=== PATIENT | female | born 1990 | race African-American/Black ===

== ENCOUNTER 2024-11-06 09:18 | Outpatient (AMB) | payer OTHER, SELFPAY ==
--- NOTE | 2024-11-06 09:46 | A.OFFVIS_ITS ---
VS Expanded 11/06/24 09:50 11/06/24 09:54 Height 5 ft 8 in 5 ft 8 in Weight 301 lb 2.423 oz 301 lb BMI 45.8 45.8 Intake Visit Reasons: T2DM Nutrition Presentation Details: Pt presents for MNT for T2DM Pt reports she had sleeve gastric surgery in 11/2023 Pt reports having symptoms of hypoglycemia 2 hours after meals Pt also reports vomiting after meals 2-3 x/wk - has endoscopy pending at the end of this month Taking vitamin supplements: reports not taking Typical meal reports having different snacks throughout the day and then in the evening has a meal consisting of starch/prot and veg food frequency fish: 0-1/m fruits:0-1/d (sometimes juices) starches > 20/d vegetables: 1-2 serving/d dairy: limits due to having intolerance to dairy pastries and similar >3/d physical activity---- reports having fluids 30-45 min before or after meals BS Monitoring Most Recent Diabetes Results: No Data to Display [facility]Je[facility] Equation Height: 5 ft 8 in Weight: 301 lb Resting Metabolic Rate: 2115.17 Calculated Activity Level: Sedentary Calories Needed to Maintain Weight: 2538.20 Diagnosis Nutrition problem #1: food nutri know defi As related to (etiology) #1: diagnosis As evidenced by (sign/symptom) #1: food recall [facility] Surgical History (Updated 11/06/24 @ 13:[address], LDN) History of sleeve gastrectomy Assessment & Plan Assessment & Plan (1) T2DM (type 2 diabetes mellitus): Code(s): E11.9 - Type 2 diabetes mellitus without complications Category: Medical Plan: Wt: 137 Kg ( 11/24 ) Est kcal needs as per MSJ: 2500 (40% carb, 30% protein/fat) Est fluid needs as per 25-30 ml/d: 4100 Est prot per day as per 1 g/kg bw: 140 Recommend fiber intake : 8-10 g per day and gradually increase to 25-28 g per day for women and 35-38 g for men or as tolerated Recommend sodium intake per day : less than 2000 mg Educated patient on: ( R = reviewed V = verbalizes understanding N/R = needs review N/A = not applicable * Food sources of carbohydrate, adequate serving sizes and its role in various health conditions: R * Differences between complex carbohydrates a simple carbohydrates, role of fiber in diet: R * Lean protein sources of foods: R * Differences between types of fats and role in diet (mono on saturated fat fatty acids, saturated fatty acids, trans fats): R V N/R * Food sources of sodium in salt and healthy modifications for heart health in kidney health: R V R/V * Vitamins and minerals: R V N/R * Healthy plate method concept: R V N/R * Physical activity: Benefits a precaution: R V N/R * Hypoglycemia protocol (rule of 15): R * Dietary prevention of Hyperglycemia: R Patient Instructions: * Switch to lactose free dairy foods if unable to tolerate lactose * do not have juices/sodas/simple carbohydrates. Choose foods with complex carbohydrates * Combine foods with protein - having 4 small meals/day consisting of 30-45 g carb with 20-30 g protein * see meal plan * Choose foods well prior to swallowing, have water 45 minutes before or after meals * abstain from alcohol Coding Level of Care Code Nutr Indiv Intake (54026) Diagnoses T2DM (type 2 diabetes mellitus) E11.9 Time Spent (min) 30
[2024-11-06 09:50] VITALS: BMI 45.8
[2024-11-06 09:54] VITALS: BMI 45.8
--- OUTSIDE RECORDS SUMMARY | 2024-11-06 10:21 | XMS_ITS | Clinical Summary ---
Author Organization [facility] [place] Address [address] [place] [address] Care Team Providers Care Driver Utility Worker Name Role Phone Unavailable Primary Care Provider Unavailabl e Social History Tobacco Use Types Packs/Day Years Used Date Smoking Tobacco: Never Assessed Comments Unknown Sex and Gender Information Value Date Recorded Sex Assigned at Not on file Legal Sex Female 10:30 PM PST Gender Identity Not on file Sexual Orientation Not on file Plan of Treatment Not on file
--- OUTSIDE RECORDS SUMMARY | 2024-11-06 10:21 | XMS_ITS | Encounter Summary ---
Author Organization [facility] [place] [address] [place] [address] Care Team Providers Care Meat Butcher Name Role Phone Unavailable Primary Care Provider Unavailabl e Prior Encounters Date Type Department Care Team Description 08/21/2019 Converted 13x Documents [facility] [address] [place] [id number] <No scans attached> 08/21/2019 Converted CPS Chart Documents [facility] [address] [place] [phone] <No scans attached> Plan of Treatment Not on file Procedures Procedure Name Priority Date/Time Associated Diagnosis Comments 15 EXTRACTION, ERUPTED TOOTH REQUIRING REMOVAL OF BONE AND/OR SECTIONING OF TOOTH Routine 05/09/2018 12:00 AM PDT 15 LIMITED ORAL EVALUATION - PROBLEM FOCUSED Routine 05/09/2018 12:00 AM PDT ADDITIONAL X-RAY Routine 05/09/2018 12:0 0 AM PDT SINGLE X-RAY Routine 05/09/2018 12:00 AM PDT INTRAORAL PHOTO Routine 05/09/2018 12:00 AM PDT Visit Diagnoses Not on file
--- OUTSIDE RECORDS SUMMARY | 2024-11-06 10:22 | XMS_ITS | Clinical Summary ---
Author Organization [facility] [address] [facility] lding Address [address] [place] [address] Phone Care Team Providers Care Flour Tester Name Role Phone Ava Stark MD Primary Care Provider Allergies Active Allergy Reactions Criticality Noted Date Comments Amoxicillin Diarrhea Low 12/19/2021 diarrhea Medications ALBUTEROL INHL Inhale by mouth. Active blood-glucose sensor (FreeStyle Estella 2 Plus Sensor) device 1 Device by Not Applicable route. 12/01/19 24 Active wheat dextrin 3 gram/3.8 gram powder Take by mouth 1 (one) time each day. Active albuterol HFA (PROAIR HFA ; PROVENTIL HFA ; VENTOLIN HFA) 90 mcg/actuation inhaler Inhale 2 puffs by mouth every 6 (six) hours if needed for wheezing or shortness of breath. 6.7 g 06/30/20 24 Active diphenhydrAMINE 12.5 mg/5 mL elixir 50 mg, aluminum-magnesi um hydroxide-simeth icone 400-400-40 mg/5 mL suspension 20 mL, lidocaine 2 % solution 20 mLIndications:La ryngitis,Pharyng itis, unspecified etiology Swish and spit 5 mL every 4 (four) hours if needed for stomatitis or mucositis. 150 each 07/14/20 24 Active Additional Information Patient not taking.Reported on 10/03/2024 glucose blood test strip 1 each by Other route if needed. Use as instructed Active glucose blood test strip Use as instructed 100 each 11 08/28/19 25 2025 Active lancets lancets Check blood sugar 4 times a day or as directed. 200 each 08/28/19 25 2025 Active OneTouch Ultra Test test stripIndications :Type 2 diabetes mellitus without complication, without long-term current use of insulin USE 1 TEST STRIP 2X DAILY TO CHECK BLOOD SUGAR 200 each 08/29/19 25 2025 Active lancets (OneTouch Delica Plus Lancet) 30 gaugeIndications :Type 2 diabetes mellitus without complication, without long-term current use of insulin USE 1 STICK 2X DAILY TO CHECK BLOOD SUGAR 200 each 08/29/19 25 Active acetaminophen (TYLENOL) 500 mg tablet TAKE 2 TABLETS BY MOUTH EVERY 6 HOURS FOR 3 DAY NEEDED FOR PAIN Active diazePAM (VALIUM) 5 mg tablet Take 1 tablet (5 mg total) by mouth 2 (two) times a day. for 3 days Max Daily Amount: 10 mg 06/15/20 24 Active docusate sodium (COLACE) 100 mg capsule Take 1 capsule (100 mg total) by mouth 2 (two) times a day. Active fluconazole (DIFLUCAN) 100 mg tablet TAKE 1 TABLET BY MOUTH TODAY, AND THE SECOND TABLET IN 3 DAYS IF NEEDED. 09/05/19 25 Active ibuprofen (ADVIL,MOTRIN) 600 mg tablet TAKE 1 TABLET BY MOUTH EVERY 6 HOURS FOR 3 DAYS NEEDED FOR MODERATE PAIN 06/15/20 24 Active phentermine 15 mg capsule Take 1 capsule (15 mg total) by mouth 1 (one) time each day in the morning. Max Daily Amount: 15 mg 03/27/20 24 Active senna 8.6 mg tablet Take 1 tablet (8.6 mg total) by mouth 1 (one) time each day. 12/06/19 24 Active sertraline (ZOLOFT) 50 mg tablet Take 1 tablet (50 mg total) by mouth 1 (one) time each day. 60 tablet 4 10/04/19 25 Active cyanocobalamin, vitamin B-12, 1,000 mcg tablet, sublingualIndica tions:Postgastre ctomy malabsorption Place 1 tablet under the tongue 1 (one) time each day. 90 tablet 10/11/19 25 2024 Active pantoprazole (PROTONIX) 40 mg EC tabletIndication s:Gastroesophage al reflux disease, unspecified whether esophagitis present Take 1 tablet (40 mg total) by mouth 1 (one) time each day before breakfast. Do not crush, chew, or split. 30 each 2 10/11/19 25 2024 Active ferrous sulfate 325 mg (65 mg iron) EC tabletIndication s:Postgastrectom y malabsorption TAKE 1 TABLET (325 MG TOTAL) BY MOUTH ONCE DAILY DO NOT CRUSH, CHEW, OR SPLIT 90 tablet 1 11/03/19 Active valACYclovir (Valtrex) 1 gram tablet Take 1 tablet (1,000 mg total) by mouth 2 (two) times a day for 7 days. 14 tablet 10/04/19 25 2024 ferrous sulfate 325 mg (65 mg iron) EC tabletIndication s:Postgastrectom y malabsorption Take 1 tablet (325 mg total) by mouth 1 (one) time each day. Do not crush, chew, or split. 30 each 10/11/19 25 2024 Discontinued Active Problems Problem Noted Date Diagnosed Date Constipation 06/14/2024 Diabetes mellitus 06/14/2024 Overview (06/14/2024): Pt reports she discontinued her Metformin 750mg BID RX due to - mananged by PCP. Discussed with Dr. Joseph Mondragon pt to begin taking Rx today as prescribed. Mixed anxiety depressive disorder 06/14/2024 Overview (06/14/2024): Pt reports has discontinued taking her Sertraline 75mg QD RX due to - managed by PCP. Discussed with Dr. Joseph Mondragon pt to resume RX today. Severe obesity 06/14/2024 Asthma 06/14/2024 Sleep apnea 06/14/2024 Trichomonas infection 09/17/2023 Overview (06/14/2024): Tx'd 09/17/2023 Vulvar itching 03/02/2023 Overview (06/14/2024): Last Assessment & Plan: Wet prep positive for BV, Rx flagyl provided. GC/CT and trich antigen collected, will treat as indicated. Patient to return for further evaluation if symptoms do not improve following treatment. 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 Elise [place] podiatry Type 2 diabetes mellitus wit hout complication, without long-term current use of insulin 01/01/2020 Obstructive sleep apnea 10/11/2019 Overview (06/14/2024): [facility] Home Sleep Apnea Test: Date 10/08/2019; Wt 360#; BMI 53; LUH 8, AI 1; HI 7; Unclassified apneas 7; Obstructive apneas 3; Central apneas 2; Mixed apneas 0; hypopneas 60; average oxygen saturation 95% (lowest 74% without saturations <88% for 5% or more of study) - Obstructive Sleep Apnea - mild; mostly hypopneas; without sleep related hypoventilation by 2019 home sleep apnea test. Current moderate episode of major depressive dis order 06/22/2019 Encounters Date Type Department Care Team Description 10/11/2024 Telephone Obstetrics and Gynecology - [place] [address] [place] [address] Luli Arrieta OR 10/10/2024 3:15 PM EDT Office Visit Bariatric Surgery - [place] 175 [facility] [address] [place] [address] Winsome Sherman MD Gastroesophageal reflux disease, unspecified whether esophagitis present (Primary Dx); Postgastrectomy malabsorption 10/03/2024 8:30 AM EST Office Visit Obstetrics and Gynecology [facility] [address] [place] [address] Luis Chamorro CNM Vaginal lesion (Primary Dx); Adjustment disorder with mixed anxiety and depressed mood 09/24/2024 7:00 AM EST Ancillary Procedure [facility] [address] [facility] [address] [place] [address] Palpitations 09/11/2024 Telephone [facility] [address] [facility] [address] [place] [phone] [place] [id number] (ok to book); Loop Enrollment (Enrolling patient for 7 day Loop) 09/07/2024 Telephone Adult [facility] [address] [place] [phone] Slade Ocampo PA event monitor 09/05/2024 3:15 PM EST Office Visit Obstetrics [facility]necology - [place] [address] [place] [address] Comfort Cochran CNM Vaginal itching (Primary Dx); Acute vaginitis 08/31/2024 8:43 AM EST - 08/31/2024 11:59 PM EST Hospital Encounter [facility] Ultrasound [address] [place] [phone] Adnexal cyst Discharge Disposition: Home or Self Care 08/28/2024 10:00 AM EST Office Visit Adult [facility] [address] [place] [phone] Slade Ocampo PA Palpitations (Primary Dx); Morbid obesity (CMS/HCC); Hypoglycemia after GI (gastrointestinal) surgery; Type 2 diabetes mellitus without complication, without long-term current use of insulin (CMS/FORMERLY [facility]); H/O gastric sleeve; Sinus bradycardia 08/23/2024 Telephone Adult Medicine [facility] [address] [place] [phone] Ava Stark MD Bradycardia from Last 3 Months Immunizations Name Administration Dates Next Due COVID-19 (Moderna/Spikevax) 12yo and older 11/24 HepB-CpG (Heplisav-B) 18yo and older 11/29/2023 Influenza Quadravalent, MDCK , 0.5ml, preservative free (Flucelvax) 6mo and older 04/16/2022,08/23/2019 Influenza trivalent, 0.5mL, preservative free (Fluarix; FluLaval; Fluzone) ages 6mo and older (Afluria) 3 years and older 07/15/2020 Moderna SARS-CoV-2 COVID-19, mRNA, LNP-S, preservative free 11/26/2023 Pneumococcal polysaccharide 23 valent (Pneumovax 23) 2yo and older 01/13/2021 Tdap Tetanus diptheria acell ular pertussis (Boostrix; Adacel) 7yo and older 06/17/2020,08/23/2019 Varicella live (Varivax) 12mo and older 11/29/19 Surgical History Surgery Date Site/Laterality Comments SECTION 2020 PROCEDURE: HISTORICAL DELIVERY OTHER SURGICAL HISTORY 12/30/2022 PROCEDURE: HISTORY OTHER; [facility] Medical History Medical History Date Comments Type 2 diabetes mellitus DX:Type 2 diabetes mellitus (HCC) PCOS (polycystic ovarian syndrome) DX:PCOS (polycystic ovarian syndrome) Obesity DX:Obesity; COMM ENT: BMI>50 Plantar fascial fibromatosis 02/19/2020 DX: Plantar fascial fibromatosis; COM[facility] of gastric surgery DX:Hi story of gastric surgery Nausea and vomiting DX:Nausea an d vomiting Straining with stools DX:Straini ng with stools Hidradenitis DX:Hidradenitis Family History Medical History Relation Name Comments No Known Problems Father Prostate cancer Maternal Grandfather Breast cancer Maternal Grandmother Diabetes Mother Stroke No Known Problems Paternal Grandfather Diabetes Sister Relation Name Status Comments Father Maternal Grandfather Maternal Grandmother Mother Paternal Grandfather Alive Paternal Grandmother Sister Social History Tobacco Use Types Packs/Day Years Used Date Smoking Tobacco: Never Smokeless Tobacco: Never Tobacco Cessation:Counseling Given: Not Answered Alcohol Use Standard Drinks/Week Comments Not Currently 0 (1 standard drink = 0.6 oz pur e alcohol) Comments No Sex and Gender Information Value Date Recorded Sex Assigned at Not on file Legal Sex Female 1:40 PM EST Gender Identity Not on file Sexual Orientation Not on file Obstetrics History Last Filed Vital Signs Vital Sign Reading Time Taken Comments Blood Pressure 123/83 10/10/2024 3:25 PM EDT Pulse 57 10/10/2024 3:25 PM EDT Temperature 36.6 ??C (97.8 ??F) 10/10/2024 3:25 PM ED T Respiratory Rate - - Oxygen Saturation 98% 06/30/2024 9:11 AM EST Inhaled Oxygen Concentration - - Weight 136 kg (299 lb) 10/10/2024 3:25 PM EDT Height 172.7 cm (5' 8 ) 10/10/2024 3:25 PM EDT Body Mass Index 45.46 10/10/2024 3:25 PM EDT Plan of Treatment Upcoming Encounters Date Type Department Care Team (Late st Contact Info) Description 11/27/2024 8:45 AM EDT Office Visit Adult Medicine - [place] [address] [place] [phone] Tony Peng PA [address] [place] [address] 11/30/2024 8:15 AM EDT Appointment [facility] Xray [address] [place] [phone] 12/05/2024 8:15 AM EDT Office Visit Obstetrics and Gynecology - [place] [address] [place] [phone] Luis Chamorro, [facility] [address] [place] [address] 12/14/2024 1:15 PM EDT Office Visit Bariatric Surgery - [place] [address] [phone] Winsome Sherman MD [address] [address] Health Maintenance Due Date Last Done Comments Diabetes: Annual Foot Exam 2000 Pneumococcal Vaccine: Pediatrics (0 to 5 Years) and At-Risk Patients (6 to 64 Years) (2 of 2 - PCV) 01/13/2022 01/13/2021 Depression Screening 07/11/2022 Social Influencers of Health Screening 07/11/2022 Hepatitis B Vaccines (2 of 2 - CpG 2-dose series) 12/27/2023 11/29/2023 COVID-19 Vaccine ( season) 2024 11/26/2023, 11/25/2023, 09/27/2020, Additional history exists Diabetes: Annual Retina Eye Exam 10/10/2024 10/11/2023 Diabetes: Annual Urine Albumin-Creatinine Ratio (uACR) 11/30/2024 12/01/2023 Diabetes: Blood Sugar Control Test (HGBA1C) 02/25/2025 08/28/2024, 12/01/2023, 12/01/2023 Influenza Vaccine (Season Ended) 2025 04/16/2022, 07/15/2020, 08/23/2019 Diabetes: Annual GFR (Glomerular Filtration Rate) 06/14/2025 06/14/2024, 12/01/2023, 12/01/2023 Cervical Cancer Screening: HPV 09/10/2026 09/10/2021 Cholesterol Screening (Lipid Panel) 11/30/2028 12/01/2023, 12/01/2023 DTaP,Tdap,and Td Vaccines (3 - Td or Tdap) 06/17/2030 06/17/2020, 08/23/2019 Varicella Vaccines Aged Out 11/29/2023 No longer eligible based on patient's age to complete this topic HIV Screening Completed 04/26/2024, 04/26/2024 Hepatitis C Screening Completed 04/26/2024 HIB Vaccines Aged Out No longer eligi ble based on patient's age to complete this topic HPV Vaccines Aged Out No longer eligi ble based on patient's age to complete this topic Hepatitis A Vaccines Aged Out No long er eligible based on patient's age to complete this topic IPV Vaccines Aged Out No longer eligi ble based on patient's age to complete this topic MMR Vaccines Aged Out No longer eligi ble based on patient's age to complete this topic Meningococcal ACWY Vaccine Aged Out N o longer eligible based on patient's age to complete this topic Meningococcal B Vacine Aged Out No lo nger eligible based on patient's age to complete this topic RSV Immunization Patients Under 20 months Aged Out No longer eligible based on patient's age to complete this topic Procedures Procedure Name Priority Date/Time Associated Diagnosis Comments CULTURE HERPES SIMPLEX VIRUS Routine 10/03/2024 9:09 AM EST Vaginal lesion CARDIAC EVENT MONITOR W/ CONNECTION Routine 09/25/2024 7:35 AM EST Palpitations TRICHOMONAS VAGINALIS ANTIGEN Routine 09/05/2024 3:36 PM EST Vaginal itching WET PREP, GENITAL Routine 09/05/2024 3:3 6 PM EST Vaginal itching US PELVIS NON OB COMPLETE W TRANSVAGINAL Routine 08/31/2024 9:29 AM EST Adnexal cyst HEMOGLOBIN A1C Routine 08/28/2024 10:56 AM EST Morbid obesity (CMS/HCC) Hypoglycemia after GI (gastrointestinal) surgery COMPREHENSIVE METABOLIC PANEL Routine 06/14/2024 11:13 AM EST Left hip pain History of bariatric surgery HEPATITIS C SCREENING Routine 04/26/2024 HIV SCREENING Routine 04/26/2024 URINE ALBUMIN CREATININE RATIO Routine 12/01/2023 LIPID PANEL Routine 12/01/2023 DIABETES EYE EXAM Routine 10/11/2023 HPV Routine 09/10/2021 from Last 3 Months or Most Recently Relevant to Health Maintenance Results * Culture Herpes simplex virus (10/03/2024 9:09 AM EST) Specimen Source Urogenital - Vagina 10/11/2024 8:05 AM EDT [facility] HSVC Interpretation No Growth No Growth 10/11/2024 8:05 AM EDT [facility] Comment: This method utilizes standard tube culture methods with monoclonal antibody staining of CPE-positive cells. This procedure can detect and differentiate herpes type 1 and herpes type 2. Other viruses present in the specimen will not be identified. A negative result does not preclude viral infection. The viability of viral agents can be degraded if specimens are improperly collected or stored. The number of viable virus particles may be below the detection threshold. Test performed at [facility], [address] , [place], [place] ??[address] ? [phone] Brissa Arshad MD, PhD - Biology Lecturer Swab Vaginal structure / Unknown Non-blood Collection / Unknown 10/03/2024 9:09 AM EST 10/03/2024 9:09 AM EST us Luis Chamorro [facility] MICROBIOLOGY - GENERAL OR DERABLES Final Result [facility] [address] [place] [address] * CARDIAC EVENT MONITOR W/ CONNECTION (09/25/2024 7:35 AM EST) Anatomical Region Laterality Modality Cardiac Diagnost ic Impressions 10/03/2024 3:43 PM EST Normal sinus rhythm with a sinus arrhythmia. ??No sustained atrial or ventricular arrhythmias noted. ??Patient symptoms did not correspond to an arrhythmia. Narrative 10/03/2024 3:43 PM EST ?Normal sinus rhythm. ??No bradycardia or arrhythmias noted. [facility] DIAGNOSTIC [facility]ING DEPARTMENT [address] [place] [address] TEL: FAX: TYPE OF TEST: 7 day Looping monitor. DATES OF MONITORIN09/24/2024- 10/01/2024 REQUESTING PHYSICIAN: TABATHA Nugent PRIMARY CARE PROVIDER: Ava Stark MD INDICATION: Palpitations PRELIMINARY FINDINGS FROM FIRST CALL MEDICAL: 1. The predominant rhythm was sinus, with sinus arrhythmia. 2. There were 5 patient triggered symptomatic events. Slade MAYS [facility] CARDIAC SERVICES PROCEDURES Final Result * Trichomonas vaginalis antigen (09/05/2024 3:36 PM EST) Trichomonas vaginalis Negative Negative 09/05/2024 10:00 PM EST [facility] Swab Cervix uteri structure / Unknown Non-blood Collection / Unknown 09/05/2024 3:36 PM EST 09/05/2024 3:37 PM EST [facility] MICROBIOLOGY - GENERAL O RDERABLES Final Result Performing Organization Address [facility] Co de Phone Number [facility] [address] [place] [address], [place] [phone] * (ABNORMAL) Wet prep, genital (09/05/2024 3:36 PM EST) Clue Cells, Wet Prep Negative Negative 09/05/2024 9:59 PM EST [facility] Yeast, Wet Prep Positive(A) Negative 09/05/2024 9:59 PM EST [facility] Trichomonas, Wet Prep Indeterminate Negative 09/05/2024 9:59 PM EST [facility] Comment:Refer to Trichomonas antigen. Swab Cervix uteri structure / Unknown Non-blood Collection / Unknown 09/05/2024 3:36 PM EST 09/05/2024 3:37 PM EST [facility] MICROBIOLOGY - GENERAL O RDERABLES Final Result Performing Organization Address [facility] de Phone Number [facility] [address] [place] [address], [place] [phone] * US Pelvis Non OB Complete w Transvaginal (08/31/2024 9:29 AM EST) Anatomical Region Laterality Modality Body, Pelvis Ultrasound 08/31/2024 2:09 PM EST Impressions 08/31/2024 2:12 PM EST 2.2 cm right sided ovarian lesion most likely represents a corpus luteal cyst. Clinical correlation recommended. -------- FINAL REPORT -------- Dictated By: Perry Cordero Dictated Date: 08/31/2024 14:09 ET Assigned Physician: Perry Cordero Reviewed and Electronically Signed By: Perry Cordero Signed Date: 08/31/2024 14:12 ET Workstation ID: [id number] Transcribed By: Self Edit Transcribed Date: 08/31/2024 14:09 ET Narrative 08/31/2024 2:12 PM EST INDICATION: Cysts. Technique: Ultrasound of the pelvis was obtained with both transabdominal and transvaginal imaging. Comparison: No prior studies are available for comparison. FINDINGS: Uterus: Normal in size, shape and echogenicity. The endometrial stripe measures 9 mm in width. Right ovary: 2.2 cm echogenic rounded lesion in the right ovary. Periphery is isoechoic with central hypoechoic component. Patient demonstrates increased through transmission with mild peripheral vascularity. Normal vascularity. Left ovary: Within normal limits. Free fluid: None. Procedure Note Perry Cordero MD - 08/31/2024 INDICATION: Cysts. Technique: Ultrasound of the pelvis was obtained with both transabdominaland transvaginal imaging. Comparison: No prior studies are available for comparison. FINDINGS: Uterus: Normal in size, shape and echogenicity. The endometrial stripemeasures 9 mm in width. Right ovary: 2.2 cm echogenic rounded lesion in the right ovary. Peripheryis isoechoic with central hypoechoic component. Patient demonstratesincreased through transmission with mild peripheral vascularity. Normalvascularity. Left ovary: Within normal limits. Free fluid: None. IMPRESSION: 2.2 cm right sided ovarian lesion most likely represents a corpus lutealcyst. Clinical correlation recommended. -------- FINAL REPORT -------- Dictated By: Perry Cordero Dictated Date: 08/31/2024 14:09 ET Assigned Physician: Perry Cordero Reviewed and Electronically Signed By: Perry Cordero Signed Date: 08/31/2024 14:12 ET Workstation ID: [id number] Transcribed By: Self Edit Transcribed Date: 08/31/2024 14:09 ET us Tony MAYS IMMark US PROCEDURES Final Resul t * Hemoglobin A1c (08/28/2024 10:56 AM EST) Hemoglobin A1C 5.7 <6.5 % LAB CHEMISTRY METHOD 08/28/2024 9:[address] [facility] Mean Bld Glu Estim. 117 mg/dL LAB CHEMISTRY METHOD 08/28/2024 9:[address] [facility] Blood Venous blood specimen / Unknown Venipuncture / Unknown 08/28/2024 10:56 AM EST 08/28/2024 10:56 AM EST us Slade MAYS LAB BLOOD ORDERABLES Final Res ult [facility] [address] [place] [address], * (ABNORMAL) Comprehensive metabolic panel (06/14/2024 11:13 AM EST) Sodium 139 133 - 145 mmol/L LAB CHEMISTRY METHOD 06/14/2024 1:[address] [facility] Potassium 4.0 3.5 - 5.5 mmol/L LAB CHEMISTRY METHOD 06/14/2024 1:[address] [facility] Chloride 108 96 - 110 mmol/L LAB CHEMISTRY METHOD 06/14/2024 1:[address] [facility] CO2 24 21 - 32 mmol/L LAB CHEMISTRY METHOD 06/14/2024 1:[address] [facility] Anion Gap 7 3 - 11 LAB CHEMISTRY METHOD 06/14/2024 1:[address] [facility] Glucose 79 70 - 100 mg/dL LAB CHEMISTRY METHOD 06/14/2024 1:[address] [facility] BUN 4(L) 5 - 25 mg/dL LAB CHEMISTRY METHOD 06/14/2024 1:[address] [facility] Creatinine 0.69 0.50 - 1.10 mg/dL LAB CHEMISTRY METHOD 06/14/2024 1:[address] [facility] eGFR 118 >=60 mL/min/1. 73m2 LAB CHEMISTRY METHOD 06/14/2024 1:[address] [facility] Comment:Calculation based on the??Chronic Kidney Disease Epidemiology Collaboration (CKD-EPI) equation refit??without adjustment for race. BUN/Creatinine Ratio 5.8 LAB CHEMISTRY METHOD 06/14/2024 1:[address] [facility] Calcium 9.1 8.5 - 10.5 mg/dL LAB CHEMISTRY METHOD 06/14/2024 1:[address] [facility] AST (SGOT) 13 10 - 42 unit/L LAB CHEMISTRY METHOD 06/14/2024 1:[address] [facility] ALT (SGPT) 15 10 - 60 unit/L LAB CHEMISTRY METHOD 06/14/2024 1:[address] [facility] Alkaline Phosphatase 85 42 - 121 unit/L LAB CHEMISTRY METHOD 06/14/2024 1:[address] [facility] Total Protein 6.6 6.0 - 8.0 g/dL LAB CHEMISTRY METHOD 06/14/2024 1:[address] [facility] Albumin 3.4 3.2 - 5.0 g/dL LAB CHEMISTRY METHOD 06/14/2024 1:[address] [facility] Total Bilirubin 0.5 0.0 - 1.4 mg/dL LAB CHEMISTRY METHOD 06/14/2024 1:[address] [facility] Blood Venous blood specimen / Unknown Venipuncture / Unknown 06/14/2024 11:13 AM EST 06/14/2024 11:13 AM EST Slade [facility] LAB BLOOD ORDERABLES Final Res ult [facility] [address] [place] [address], [place] [phone] * HIV Screening (04/26/2024) Pathologist [facility] HIV Screening abstracted us Historical Provider HEALTH MAINTENANCE Final Result * Hepatitis C Screening (04/26/2024) Pathologist [facility] Hepatitis C Screening abstracted Result [facility] Provider HEALTH MAINTENANCE Final Result * Urine Albumin Creatinine Ratio (12/01/2023) [facility] Urine Albumin Creatinine Ratio abstracted Result [facility] Provider HEALTH MAINTENANCE Final Result * Lipid panel (12/01/2023) [facility] LDL/HDL Ratio 3 0 - 4 Triglycerides 43 0 - 150 mg/dL Cholesterol 135 0 - 200 mg/dL HDL 50 >=40 mg/dL LDL Cholesterol 77 0 - 100 mg/dL Blood Venous blood specimen / Unknown Result [facility] Provider LAB BLOOD ORDERABLES Princess l Result * Diabetes Eye Exam (10/11/2023) [facility] Diabetes: Annual Retina Eye Exam abstracted Result [facility] Provider HEALTH MAINTENANCE Final Result * Cervical Cancer Screening: HPV (09/10/2021) [facility] Cervical Cancer Screening: HPV negative, abstracted Result [facility] Provider HEALTH MAINTENANCE Final Result from Last 3 Months or Most Recently Relevant to Health Maintenance Insurance [facility] Care Teams Flour Tester Relationship Specialty Start Date End Date Ava Stark MD [address] [place] [id number] PCP - General Internal Medicine 08/05/21
== END 2024-11-06 10:20 | disposition home or self-care (01) ==
LOC: HO.ENCR 09:19
PROVIDERS: PCP Physician Assistant Medical; Visit Provider Dietitian, Registered
DX: E11.9 Type 2 diabetes mellitus without complications (principal)

== ENCOUNTER → 2024-11-06 09:18 | Outpatient (BNVA) | payer OTHER, SELFPAY | PROVIDERS: PCP Physician Assistant Medical; Visit Provider Dietitian, Registered | DX: E11.9 Type 2 diabetes mellitus without complications (principal) | CPT/HCPCS: 97802 ==

== ENCOUNTER 2024-12-12 11:28 | Outpatient (AMB) | payer OTHER, SELFPAY ==
--- NOTE | 2024-12-12 11:41 | A.OFFVIS_ITS ---
VS Expanded 12/12/24 11:47 Height 5 ft 8 in Weight 299 lb 13.259 oz BMI 45.6 Intake Visit Reasons: T2DM Nutrition Presentation Details: Pt presents for MNT f/u for T2DM Pt reports starting protein shakes 1 /day working on reducing on sugars and notices symptoms of hypoglycemia have lessened Has pending appt with surgeon on 12/14/24 at [facility] Pt reports restarting to take vitamins as rx by MD at [facility] (iron , b 12 vitamin d ) Can tolerate some foods cooked but not raw Participates in open pantries Admits to tendency to snack (crackers/cereals/fish crackers and similar ) BS Monitoring Most Recent Diabetes Results: No Data to Display [facility] Surgical History (Updated 11/06/24 @ 13:[address], LDN) History of sleeve gastrectomy Assessment & Plan Assessment & Plan (1) T2DM (type 2 diabetes mellitus): Code(s): E11.9 - Type 2 diabetes mellitus without complications Category: Medical Plan: Wt: 137 Kg ( 11/24 ), 136 kg (12/24) Est kcal needs as per MSJ: 2500 (40% carb, 30% protein/fat) Est fluid needs as per 25-30 ml/d: 4100 Est prot per day as per 1 g/kg bw: 140 Recommend fiber intake : 8-10 g per day and gradually increase to 25-28 g per day for women and 35-38 g for men or as tolerated Recommend sodium intake per day : less than 2000 mg Educated patient on: ( R = reviewed V = verbalizes understanding N/R = needs review N/A = not applicable * Food sources of carbohydrate, adequate serving sizes and its role in various health conditions: R * Differences between complex carbohydrates a simple carbohydrates, role of fiber in diet: R * Lean protein sources of foods: R * Differences between types of fats and role in diet (mono on saturated fat fatty acids, saturated fatty acids, trans fats): R V N/R * Food sources of sodium in salt and healthy modifications for heart health in kidney health: R V R/V * Vitamins and minerals: R V N/R * Healthy plate method concept: R V N/R * Physical activity: Benefits a precaution: R V N/R * Hypoglycemia protocol (rule of 15): R * Dietary prevention of Hyperglycemia: R Patient Instructions: Continue working on reducing on simple sugars Work on having 3 small meals and 1 snack a day , space meals/snacks by 3-4 hours Choose meals/snacks with a combination of protein and complex carb - see meal and snack options Coding Level of Care Code Nutr Indiv Subseq (03791) Diagnoses T2DM (type 2 diabetes mellitus) E11.9 Time Spent (min) 30
[2024-12-12 11:47] VITALS: BMI 45.6
--- OUTSIDE RECORDS SUMMARY | 2024-12-12 12:56 | XMS_ITS | Clinical Summary ---
Author Organization [facility] Address [address] [place] [address] Care Team Providers Care Director Of Religious Life Name Role Phone Unavailable Primary Care Provider [...]
--- OUTSIDE RECORDS SUMMARY | 2024-12-12 12:56 | XMS_ITS | Encounter Summary ---
Author Organization [facility] [place] [address] [place] [address] Care Team Providers Care Security Systems Specialist Name Role Phone Unavailable Primary Care Provider Unavailabl e Prior Encounters Date Type Department Care Team Description 08/21/2019 Converted 13x Documents [facility] [address] [place] [address] <No scans attached> 08/21/2019 Converted CPS Chart Documents [facility] [address] [place] [address] <No scans attached> Plan of Treatment Not [...]
--- OUTSIDE RECORDS SUMMARY | 2024-12-12 12:57 | XMS_ITS | Clinical Summary ---
Author Organization [facility] [address] [facility] [address] Address [address] [place] [address] Phone Care Team Providers Care Band Leader Name Role Phone Ava Stark MD Primary [...] of breath. 6.7 g 06/30/20 24 Active glucose blood test strip 1 each by Other route if needed. Use as instructed Active lancets lancets Check blood sugar 4 times a day or as directed. 200 each 11 08/28/19 25 026 Active OneTouch Ultra Test test stripIndications: Type 2 diabetes mellitus without complication, without long-term current use of insulin ([facility] V24, CMS/[facility] V28) USE 1 TEST STRIP 2X DAILY TO CHECK BLOOD SUGAR 200 each 3 08/29/19 25 026 Active lancets (OneTouch Delica Plus Lancet) 30 gaugeIndications: Type 2 diabetes mellitus without complication, without long-term current use of insulin (CMS/[facility] V24, CMS/[facility] V28) USE 1 STICK 2X DAILY TO CHECK BLOOD SUGAR 200 each 3 08/29/19 25 Active acetaminophen (TYLENOL) 500 mg [...] NEEDED FOR MODERATE PAIN 06/15/20 24 Active senna 8.6 mg tablet Take 1 tablet (8.6 mg total) by mouth 1 (one) time each day. 12/06/19 24 Active sertraline (ZOLOFT) 50 mg tablet Take 1 tablet (50 mg total) by mouth 1 (one) time each day. 60 tablet 4 10/04/19 25 Active cyanocobalamin, vitamin B-12, 1,000 mcg tablet, sublingualIndicat ions:Postgastrect presley malabsorption Place 1 tablet under the tongue 1 (one) time each day. 90 tablet 10/11/19 25 025 Active pantoprazole (PROTONIX) 40 mg EC tabletIndications :Gastroesophageal reflux disease, unspecified whether esophagitis present Take 1 tablet (40 mg total) by mouth 1 (one) time each day before breakfast. Do not crush, chew, or split. 30 each 2 10/11/19 25 025 Active ferrous sulfate 325 mg (65 mg iron) EC tabletIndications :Postgastrectomy malabsorption TAKE 1 TABLET (325 MG TOTAL) BY MOUTH ONCE DAILY DO NOT CRUSH, CHEW, OR SPLIT 90 tablet 1 11/03/19 25 Active sertraline (ZOLOFT) 50 mg tablet Take 1 tablet (50 mg total) by mouth 1 (one) time each day. 75mg daily add with 25mg for total of 75mg daily 90 tablet 2 12/06/19 25 Active sertraline (ZOLOFT) 25 mg tablet Take 1 tablet (25 mg total) by mouth 1 (one) time each day. Add with 50mg daily with 25mg daily for total dose of 75mg daily 90 tablet 2 12/06/19 25 Active valACYclovir (VALTREX) 500 mg tablet Take 1 tablet (500 mg total) by mouth 1 (one) time each day. 30 each 5 12/06/19 25 Active diphenhydrAMINE 12.5 mg/5 mL elixir 50 mg, aluminum-magnesiu m hydroxide-simethi cone 400-400-40 mg/5 mL suspension 20 mL, lidocaine 2 % solution 20 mLIndications:Lar yngitis,Pharyngit is, unspecified etiology Swish and spit 5 mL every 4 (four) hours if needed for stomatitis or mucositis. 150 each 07/14/20 24 Discontinu ed(Therapy completed) glucose blood test strip Use as instructed 100 each 11 08/28/19 25 Discontinu ed(Duplica te order) phentermine 15 mg capsule Take 1 capsule (15 mg total) by mouth 1 (one) time each day in the morning. 03/27/20 24 Discontinu ed(Therapy completed) valACYclovir (Valtrex) 1 gram tablet Take 1 tablet (1,000 mg total) by mouth 1 (one) time each day for 7 days. 7 tablet 11/25/19 25 Active Problems Problem Noted Date Diagnosed Date Constipation 06/14/2024 Diabetes mellitus ([facility] V24, [facility] V28) Overview (06/14/2024): Pt reports she discontinued her Metformin 750mg BID RX due to - mananged by PCP. Discussed with Dr. Ruiz - pt to begin taking Rx today as prescribed. Mixed anxiety depressive disorder 06/14/2024 Overview (06/14/2024): Pt reports has discontinued taking her Sertraline 75mg QD RX due to - managed by PCP. Discussed with Dr. Ruiz - pt to resume RX today. Severe obesity (CMS/HCC V24, CMS/[facility] V28) 2023 Asthma 06/14/2024 Sleep apnea 06/14/2024 Trichomonas infection [...] fascial fibromatosis 02/19/2020 Overview (06/14/2024): 01/24/2020 Dr. Elise, [facility] Type 2 diabetes mellitus wit hout complication, without long-term current use of insulin ([facility], [facility] V28) 01/01/2020 Obstructive sleep apnea 10/11/2019 Overview (06/14/2024): [facility] Home Sleep Apnea Test: Date 10/08/2019; [...] test. Current moderate episode of major depressive disorder ([facility], [facility] V28) 06/22/2019 Encounters Date Type Department Care Team Description 12/05/2024 8:15 AM EDT Office Visit Obstetrics and Gynecology [address] [phone] Luis Chamorro, BRIT Anxiety, generalized (Primary Dx); History of herpes genitalis 11/30/2024 8:00 AM EDT - 11/30/2024 11:59 PM EDT Hospital Encounter [facility] Xray [address] [place] [phone] Gastroesophageal reflux disease, unspecified whether esophagitis present Discharge Disposition: Home or Self Care 11/24/2024 10:45 AM EDT Office Visit Obstetrics and Gynecology - [facility] [address] [place] [phone] Sosa Ramires, BRIT Vulvar lesion (Primary Dx) 11/24/2024 Telephone Obstetrics and Gynecology - [place] [address] [place] [phone] Luis Chamorro CNM Vaginal/vulvar Complaint 10/11/2024 Telephone Obstetrics and Gynecology - [place] [address] [place] [phone] Luli Arrieta [place] 10/10/2024 3:15 PM EDT Office Visit Bariatric Surgery - [place] [address] [facility] [address] [place] [phone] Winsome Sherman MD Gastroesophageal reflux disease, unspecified whether esophagitis present (Primary Dx); Postgastrectomy malabsorption 10/03/2024 8:30 AM EST Office Visit [facility]stetrics and [facility] [address] [place] [phone] Luis Chamorro CNM Vaginal lesion (Primary Dx); Adjustment disorder with mixed anxiety and depressed mood 09/24/2024 7:00 AM EST Ancillary Procedure [facility] [address] [facility] [address] [place] [phone] Palpitations from Last 3 Months Immunizations Name Administration [...] Varicella live (Varivax) 12mo and older 11/29/19 24 Surgical History Surgery Date Site/Laterality Comments SECTION 2020 PROCEDURE: HISTORICAL DELIVERY OTHER SURGICAL HISTORY 12/30/2022 PROCEDURE: HISTORY OTHER; COMMENT: [facility] Medical History Medical History Date Comments Type 2 diabetes mellitus (CM S/HCC V24, CMS/HCC V28) DX:Type 2 diabetes mellitus (HCC) PCOS (polycystic ovarian syndrome) DX:PCOS (polycystic ovarian syndrome) Obesity DX:Obesity; COMM ENT: BMI>50 Plantar fascial fibromatosis 02/19/2020 DX: Plantar fascial fibromatosis; [facility] of [facility] DX:Hi story [...] Sign Reading Time Taken Comments Blood Pressure 124/81 12/05/2024 8:24 AM EDT Pulse 72 12/05/2024 8:24 AM EDT Temperature 36.6 ??C (97.8 ??F) 10/10/2024 3:25 PM ED T Respiratory Rate 18 11/24/2024 11:06 AM EDT Oxygen Saturation 98% 06/30/2024 9:11 AM EST Inhaled Oxygen Concentration - - Weight 136 kg (300 lb) 12/05/2024 8:24 AM EDT Height 172.7 cm (5' 8 ) 11/24/2024 11:06 AM EDT Body Mass Index 45.61 11/24/2024 11:06 AM EDT Plan of Treatment Upcoming Encounters Date Type Department Care Team (Late st Contact Info) Description 12/14/2024 1:15 PM EDT Office Visit Bariatric Surgery - [place] [address] [phone] Winsome Sherman MD [address] [address] Health Maintenance Due Date Last Done Comments [...] age to complete this topic Meningococcal B Vaccine Aged Out No l onger eligible based on patient's age to complete this topic RSV Immunization Patients Under 20 months Aged Out No longer eligible based on patient's age to complete this topic Procedures Procedure Name Priority Date/Time Associated Diagnosis Comments XR UGI W AIR CONTRAST Routine 11/30/2024 8:41 AM EDT Gastroesophageal reflux disease, unspecified whether esophagitis present CULTURE HERPES SIMPLEX VIRUS Routine 10/03/2024 9:09 AM EST Vaginal lesion CARDIAC EVENT MONITOR W/ CONNECTION Routine 09/25/2024 7:35 AM EST Palpitations HEMOGLOBIN A1C Routine 08/28/2024 10:56 AM EST Morbid obesity (CMS/HCC V24, CMS/HCC V28) Hypoglycemia after GI (gastrointestinal) surgery COMPREHENSIVE METABOLIC PANEL Routine 06/14/2024 11:13 AM EST Left hip pain History of bariatric surgery HEPATITIS C SCREENING Routine 04/26/2024 HIV SCREENING Routine 04/26/2024 URINE ALBUMIN CREATININE RATIO Routine 12/01/2023 LIPID PANEL Routine 12/01/2023 DIABETES EYE EXAM Routine 10/11/2023 HM HPV Routine 09/10/2021 from Last 3 Months or Most Recently Relevant to Health Maintenance Results * XR UGI w Air Contrast (11/30/2024 8:41 AM EDT) Anatomical Region Laterality Modality Body Radiographic Katy ging 11/30/2024 8:49 AM EDT Impressions 12/01/2024 4:24 PM EDT Small, sliding hiatal hernia with moderate amounts of spontaneous gastroesophageal reflux visualized throughout exam, otherwise normal double contrast upper GI exam status post gastric sleeve. -------- FINAL REPORT -------- Dictated By: Adele Rai Dictated Date: 11/30/2024 08:49 ET Assigned Physician: Perry Cordero Reviewed and Electronically Signed By: Perry Cordero Signed Date: 12/01/2024 16:24 ET Workstation ID: [id number] Transcribed By: Self Edit Transcribed Date: 11/30/2024 08:51 ET Resident/PA/AERIAL PHOTOGRAPH INTERPRETER: Adele Rai Narrative 12/01/2024 4:24 PM EDT FINDINGS: Double contrast UGI performed. COMPARISON: No prior upper GI imaging HISTORY: Patient is a 34-year-old female with history of refractory GERD. Gastric sleeve in November 2022. CONTACT WORKER radiographs: Bandoleer Packer AP radiograph of the abdomen obtained. Bowel gas pattern is nonobstructive. Visualized lung bases appear clear. Osseous structures are overall unremarkable. FINDINGS: Effervescent crystals were administered orally. Thick and thin barium was then administered orally under fluoroscopic control. Esophagus: Normal distensibility, motility and mucosal pattern. There is no evidence of obstruction. There is a small, sliding herniation of the gastric sleeve. Stomach: Gastric anatomy is consistent with history of sleeve. Normal distensibility and motility. Prompt passage of contrast from the stomach into the duodenal bulb and sweep. No gastric mass or ulceration. Visualization of proximal small bowel is within normal limits. ?? Gastroesophageal reflux: Moderate amount spontaneous gastroesophageal reflux visualized throughout exam. DAP: 18.96 Gycm^2 Procedure Note Perry Cordero MD - 12/01/2024 FINDINGS: Double contrast UGI performed. COMPARISON: No prior upper GI imaging HISTORY: Patient is a 34-year-old female with history of refractory GERD.Gastric sleeve in November 2022. CONTACT WORKER radiographs: Bandoleer Packer AP radiograph of the abdomen obtained. Bowel gaspattern is nonobstructive. Visualized lung bases appear clear. Osseousstructures are overall unremarkable. FINDINGS: Effervescent crystals were administered orally. Thick and thinbarium was then administered orally under fluoroscopic control. Esophagus: Normal distensibility, motility and mucosal pattern. There isno evidence of obstruction. There is a small, sliding herniation of thegastric sleeve. Stomach: Gastric anatomy is consistent with history of sleeve. Normaldistensibility and motility. Prompt passage of contrast from the stomachinto the duodenal bulb and sweep. No gastric mass or ulceration.Visualization of proximal small bowel is within normal limits. Gastroesophageal reflux: Moderate amount spontaneous gastroesophagealreflux visualized throughout exam. DAP: 18.96 Gycm^2 IMPRESSION: Small, sliding hiatal hernia with moderate amounts of spontaneousgastroesophageal reflux visualized throughout exam, otherwise normaldouble contrast upper GI exam status post gastric sleeve. -------- FINAL REPORT -------- Dictated By: Adele Rai Dictated Date: 11/30/2024 08:49 ET Assigned Physician: Perry Cordero Reviewed and Electronically Signed By: Perry Cordero Signed Date: 12/01/2024 16:24 ET Workstation ID: [id number] Transcribed By: Self Edit Transcribed Date: 11/30/2024 08:51 ET Resident/PA/AERIAL PHOTOGRAPH INTERPRETER: Adele Rai us Winsome Sherman MD IMG FLUOROSCOPY PROCEDURES F inal Result * Culture Herpes simplex virus (10/03/2024 9:09 AM EST) Specimen Source Urogenital - Vagina 10/11/2024 8:05 AM EDT [facility] HSVC Interpretation No Growth No Growth 10/11/2024 8:05 AM EDT [facility] Comment: This method utilizes standard tube [...] below the detection threshold. Test performed at [facility], [address] [place], [place] ??[address] ? [phone] Brissa Arshad MD, PhD - Tester [employer] Swab Vaginal structure / Unknown Non-blood Collection / Unknown 10/03/2024 9:09 AM EST 10/03/2024 9:09 AM EST Luis Chamorro [facility] MICROBIOLOGY - GENERAL OR DERABLES Final Result [facility] [address] [place] [address] * CARDIAC EVENT MONITOR W/ CONNECTION (09/25/2024 7:35 AM EST) Anatomical Region Laterality Modality Cardiac Diagnost ic Impressions 10/03/2024 3:43 PM EST Normal sinus rhythm with a sinus arrhythmia. ??No sustained atrial or ventricular arrhythmias noted. ??Patient symptoms did not correspond to an arrhythmia. Narrative 10/03/2024 3:43 PM EST ?Normal sinus rhythm. ??No bradycardia or arrhythmias noted. [facility] DIAGNOSTIC TESTING DEPARTMENT [address] [place] [address], [place] [address] TEL: FAX: TYPE OF TEST: 7 day Looping monitor. DATES OF MONITORIN09/24/2024- 10/01/2024 REQUESTING PHYSICIAN: TABATHA Nugent PRIMARY CARE PROVIDER: Ava Stark MD INDICATION: Palpitations PRELIMINARY FINDINGS FROM FIRST CALL MEDICAL: 1. The predominant rhythm was sinus, with sinus arrhythmia. 2. There were 5 patient triggered symptomatic events. [facility] PROCEDURES Final Result * Hemoglobin A1c (08/28/2024 10:56 AM EST) Pathologist [facility] Hemoglobin A1C 5.7 <6.5 % LAB CHEMISTRY METHOD 08/28/2024 9:14 PM EST [facility] Mean Bld Glu Estim. 117 mg/dL LAB CHEMISTRY METHOD 08/28/2024 9:14 PM [facility] Blood Venous blood specimen / Unknown Venipuncture / Unknown 08/28/2024 10:56 AM EST 08/28/2024 10:56 AM EST [facility] LAB BLOOD ORDERABLES Final Res ult [facility] [address] [place] [address], * (ABNORMAL) Comprehensive metabolic panel (06/14/2024 11:13 AM EST) [facility] Sodium 139 133 - 145 mmol/L LAB CHEMISTRY METHOD 06/14/2024 1:46 PM [facility] Potassium 4.0 3.5 - 5.5 mmol/L LAB CHEMISTRY METHOD 06/14/2024 1:46 PM [facility] Chloride 108 96 - 110 mmol/L LAB CHEMISTRY METHOD 06/14/2024 1:46 PM [facility] CO2 24 21 - 32 mmol/L LAB CHEMISTRY METHOD 06/14/2024 1:46 PM [facility] Anion Gap 7 3 - 11 LAB CHEMISTRY METHOD 06/14/2024 1:46 PM [facility] Glucose 79 70 - 100 mg/dL LAB CHEMISTRY METHOD 06/14/2024 1:46 PM [facility] BUN 4(L) 5 - 25 mg/dL LAB CHEMISTRY METHOD 06/14/2024 1:46 PM [facility] Creatinine 0.69 0.50 - 1.10 mg/dL LAB CHEMISTRY METHOD 06/14/2024 1:46 PM [facility] eGFR 118 >=60 mL/min/1. 73m2 LAB CHEMISTRY METHOD 06/14/2024 1:46 PM [facility] Comment:Calculation based on the??Chronic Kidney Disease Epidemiology Collaboration (CKD-EPI) equation refit??without adjustment for race. BUN/Creatinine Ratio 5.8 LAB CHEMISTRY METHOD 06/14/2024 1:46 PM [facility] Calcium 9.1 8.5 - 10.5 mg/dL LAB CHEMISTRY METHOD 06/14/2024 1:46 PM [facility] AST (SGOT) 13 10 - 42 unit/L LAB CHEMISTRY METHOD 06/14/2024 1:46 PM [facility] ALT (SGPT) 15 10 - 60 unit/L LAB CHEMISTRY METHOD 06/14/2024 1:46 PM [facility] Alkaline Phosphatase 85 42 - 121 unit/L LAB CHEMISTRY METHOD 06/14/2024 1:46 PM [facility] Total Protein 6.6 6.0 - 8.0 g/dL LAB CHEMISTRY METHOD 06/14/2024 1:46 PM [facility] Albumin 3.4 3.2 - 5.0 g/dL LAB CHEMISTRY METHOD 06/14/2024 1:46 PM [facility] Total Bilirubin 0.5 0.0 - 1.4 mg/dL LAB CHEMISTRY METHOD 06/14/2024 1:46 PM [facility] Blood Venous blood specimen / Unknown Venipuncture / Unknown 06/14/2024 11:13 AM EST 06/14/2024 11:13 AM EST [facility] LAB BLOOD ORDERABLES Final Res ult [facility] [address] [place] [address], [place] [phone] * HIV Screening (04/26/2024) Pathologist [facility] HIV Screening abstracted Historical Provider HEALTH MAINTENANCE Final Result * Hepatitis C Screening (04/26/2024) [facility] Hepatitis C Screening abstracted [facility] Provider HEALTH MAINTENANCE Final Result * Urine Albumin Creatinine Ratio (12/01/2023) [facility] Urine Albumin Creatinine Ratio abstracted [facility] Provider HEALTH MAINTENANCE Final Result * Lipid panel (12/01/2023) [facility] LDL/HDL Ratio 3 0 - 4 Triglycerides 43 0 - 150 mg/dL Cholesterol 135 0 - 200 mg/dL HDL 50 >=40 mg/dL LDL Cholesterol 77 0 - 100 mg/dL Blood Venous blood specimen / Unknown Result [facility] Historical Provider LAB BLOOD ORDERABLES Princess l Result * Diabetes Eye Exam (10/11/2023) [facility] Diabetes: Annual Retina Eye Exam abstracted Historical Provider HEALTH MAINTENANCE Final Result * Cervical Cancer Screening: HPV (09/10/2021) [facility] Cervical Cancer Screening: HPV negative, abstracted Result [facility] Historical Provider HEALTH MAINTENANCE Final Result from Last 3 Months or Most Recently Relevant to Health Maintenance Insurance [employer] [facility] Care Teams Band Leader Relationship Specialty Start Date End Date Ava Stark MD [address] [place] [id number] PCP - General Internal Medicine 08/05/21
== END 2024-12-12 12:20 | disposition home or self-care (01) ==
LOC: HO.ENCR 11:28
PROVIDERS: PCP Physician Assistant Medical; Visit Provider Dietitian, Registered
DX: E11.9 Type 2 diabetes mellitus without complications (principal)

== ENCOUNTER → 2024-12-12 11:28 | Outpatient (BNVA) | payer OTHER, SELFPAY | PROVIDERS: PCP Physician Assistant Medical; Visit Provider Dietitian, Registered | DX: E11.9 Type 2 diabetes mellitus without complications (principal); Z71.3 Dietary counseling and surveillance | CPT/HCPCS: 97803 ==